=== PATIENT | male | born 1940 | race Caucasian/White ===

== ENCOUNTER 2016-05-29 11:40 | Day surgery (SDC) | payer OTHER, BC ==
[2016-05-28 11:32] VITALS: BMI 23.6
--- NOTE | 2016-05-29 09:21 | HP ---
Satellite [facility] - Chief Complaint History of Present Illness: 75 year old male with CKD 5 who needs peritoneal dialysis catheetr placement for planned PD. He has an AV fistula in left arm. History Source: Patient, Medical Record Limitations to Obtaining History: No Limitations - Past Medical History Allergies/Adverse Reactions: Allergies Allergy/AdvReac Type Severity Reaction Status Date / Time codeine Allergy Low Blood Verified 05/29/16 12:24 Pressure diazepam [From Valium] Allergy Verified 05/29/16 12:24 hydroxyzine HCl Allergy Verified 05/29/16 12:24 [From Vistaril] hydroxyzine pamoate Allergy Verified 02/25/15 16:09 [From Vistaril] meperidine HCl [From Demerol] Allergy Verified 05/29/16 12:24 tetracycline Allergy Verified 05/29/16 12:24 Cardiovascular: Yes: HTN Renal/: Yes: Renal Failure Additional Medical History: Umbilical hernia repair - Current Medications Current Medications: Home Medications Medication Instructions Recorded Amlodipine Besylate 5 mg PO DAILY 02/25/15 Doxazosin Mesylate 2 mg PO HS 02/25/15 Aspirin [ASA -] 81 mg PO DAILY 05/28/16 Calcitriol [Rocaltrol -] 0.5 mcg PO DAILY 05/28/16 Sodium Bicarbonate - 650 mg PO DAILY 05/28/16 Sevelamer Carbonate [Renvela] 800 mg PO CM 05/29/16 Satellite Physical Exam - Physical Examination General Appearance: Alert & Oriented x3 ENT: Clear Lung: Clear to auscultation Heart: Regular rate & rhythm Abdomen: Soft Extremities: No edema Satellite Impression/Plan - Impression/Plan Impression: Renal failure to start PD once catheter ready Operative Procedure: Laparoscopic placement peritoneal dialysis catheter Date to be Performed: 05/29/16
[2016-05-29] MEDS ORDERED: SUCCINYLCHOLINE CHLORIDE 200 MG/10 ML VIAL ONE (14:01)
[2016-05-29] MEDS ORDERED: ROCURONIUM BROMIDE 50 MG/5 ML VIAL ONE (14:01)
[2016-05-29] MEDS ORDERED: PROPOFOL 20 ML ONE ×2 (14:01)
[2016-05-29] MEDS ORDERED: ceFAZolin SODIUM 1 GM VIAL IVPB ONE (14:07)
[2016-05-29] MEDS ORDERED: ceFAZolin SODIUM 1 GM VIAL ONE (14:13)
[2016-05-29] MEDS ORDERED: BUPIVACAINE HCL/PF (5 MG/ML) 30 ML VIAL IJ ONE (14:18)
[2016-05-29] MEDS ORDERED: ONDANSETRON 4 MG/2 ML VIAL IVPUSH PRN (15:04)
[2016-05-29] MEDS ORDERED: ACETAMINOPHEN 325 MG TABLET (FP) PO PRN ×2 (15:04→15:21)
[2016-05-29] MEDS ORDERED: OXYCODONE/APAP 5/325MG COMBO TABLET PO PRN (15:13)
[2016-05-29] MEDS ORDERED: IBUPROFEN 600 MG TABLET (FP) PO PRN (15:13)
--- NOTE | 2016-05-29 15:13 | OP ---
Operative Note - Note: Operative Date: 05/29/16 Pre-Operative Diagnosis: Renal failure Operation: Laparoscopic placement of peritoneal dialysis catheter. Laparoscopic lysis of adhesions. Laparoscopic omentopexy Findings: Intra-abdominal adhesions between omentum and abdominal wall and sigmoid colon. Redundant omentum in pelvis Implants: Coiled swan-neck Tenckhoss catheter Post-Operative Diagnosis: Same as Pre-op Surgeon: Adriel Abarca Anesthesiologist/IDENTITY MANAGEMENT DEVELOPER: Diana Mittal Anesthesia: General Operative Report Dictated: Yes
[2016-05-29] MEDS ORDERED: BUPIVACAINE HCL/PF 0.5% (5MG/ML) 10 ML VIAL ONE (15:16)
[2016-05-29] MEDS ORDERED: oxyCODONE HCL 5 MG TABLET PO PRN (15:21)
[2016-05-29 15:32] VITALS: TEMP 97.6
--- NOTE | 2016-05-29 15:51 | OP ---
DATE OF OPERATION: 05/29/2016 PROCEDURE: Laparoscopic placement of peritoneal dialysis catheter. Laparoscopic lysis of adhesions. Laparoscopic omentopexy. PREOPERATIVE DIAGNOSIS: Renal failure. POSTOPERATIVE DIAGNOSIS: Renal failure with intraabdominal adhesions. ANESTHESIA: General. ANESTHESIOLOGIST: Diana Mittal MD OPERATIVE FINDINGS: There were adhesions between omentum and sigmoid colon and the anterior abdominal wall. OPERATIVE PROCEDURE: Following routine patient identification, general anesthesia was induced. The abdomen was prepped with ChloraPrep. Time-out was performed. A midline skin incision was made above the umbilicus and a 5-mm Visiport placed into the peritoneal cavity under direct laparoscopic visualization. Pneumoperitoneum was established to 15 mmHg pressure with carbon dioxide gas. A 5-mm laparoscope was inserted and abdominal exploration was carried out. A 2nd 5-mm port was placed in the left lower quadrant under direct visualization. A Harmonic scalpel was used to divide adhesions between omentum, the anterior abdominal wall, and the sigmoid colon. The omentum was redundant in the pelvis and required omentopexy. A 2-0 Prolene suture on a Dima needle was advanced through the abdominal wall in the right upper quadrant and grasped with an endo clamp. It was then passed through the greater omentum and then a suture passer was used to bring the suture back through the abdominal wall through the same incision. The suture was tied securely to fix the omentum in the upper abdomen. The peritoneal dialysis catheter was then placed by making a skin incision just above and to the right of the umbilicus, and passing an 8-mm bladeless trocar to the underside of the peritoneum. It was then advanced caudally towards the pelvis and then brought through the peritoneum into the peritoneal cavity. A coiled double-cuffed Tenckhoff catheter with a swan neck was advanced through the introducer with a er medical technician and deployed into the pelvis with the cuff placed at the level of the fascia. The trocar was removed and the end of the catheter was attached to a curved tunneler and passed through the subcutaneous tissues to exit in the right abdominal wall. The Luer-Bam adapter was placed on the catheter and then 1 L of saline was run in in approximately 3 minutes and then drained approximately 500 mL from the peritoneal cavity. All trocars were removed. The wounds were closed with interrupted suture of 3-0 Vicryl in subcutaneous tissues and subcuticular sutures of 4-0 Biosyn on the skin. Sterile dressings were applied and the patient was taken to the recovery room in stable condition. HAYDER NEVAREZ M.D. [facility]/[id number]
[2016-05-29] MEDS ORDERED: IBUPROFEN 600 MG TABLET (FP) PO ONE (16:25)
[2016-05-29 18:07] VITALS: BP 145/60; PULSE 56
== END 2016-05-29 18:07 | disposition home or self-care (01) ==
LOC: JASU-SURG 11:40
PROVIDERS: ATTEND Surgery
PROC: 0WHG43Z Insertion of Infusion Device into Peritoneal Cavity, Percutaneous Endoscopic Approach (ICD-10-PCS; principal; 2016-05-29 13:30)
DX: I12.0 Hypertensive chronic kidney disease with stage 5 chronic kidney disease or end stage renal disease (principal)
CPT/HCPCS: 36415; 84132; 94760